=== PATIENT | female | born 1970 | race Caucasian/White ===

== ENCOUNTER 2018-07-13 10:30 | Day surgery (SDC) | payer OTHER ==
[2018-07-12 12:35] VITALS: BMI 26.3
[2018-07-13] MEDS ORDERED: Sodium Bicarbonate 2.5 MEQ/5 ML VIAL ONE (10:43)
[2018-07-13] MEDS ORDERED: Lidocaine 1% PF 5 ML VIAL ONE (10:43)
[2018-07-13 12:03] VITALS: BP 117/74; TEMP 98
--- NOTE | 2018-07-13 13:15 | ULT ---
ULTRASOUND GUIDED FINE NEEDLE ASPIRATION: INDICATIONS: Solid nodule within the right thyroid gland. COMPARISON: None. TECHNIQUE: A pre-procedure ultrasound was performed for guidance purposes only. There is a solid, echogenic nod ule seen within the right mid thyroid lobe, measuring 0.9 x 0.9 x 1.4 cm. There is a small cystic le gaston within the mid left thyroid lobe, measuring 3 x 4 mm. No lymphadenopathy is evident. Informed consent was obtained. The site overlying the right lobe was prepped and draped in the usual sterile fashion. Buffered 1% L idocaine was administered to the overlying subcutaneous tissues. Under ultrasound guidance, four sep arate FNA samples were obtained of the lesion within the right thyroid lobe. Pathology was onsite to obtain the FNA samples as acquired. The patient tolerated the FNA without difficulty. Postprocedur e images demonstrate no significant intraparenchymal or periparenchymal hematoma. The site was then cleansed and bandaged. The patient tolerated the procedure without difficulty. IMPRESSION: Successful ultrasound guided right thyroid nodule fine needle aspiration. POS: JONATHAN
== END 2018-07-13 11:50 | disposition home or self-care (01) ==
LOC: ULT 10:30
PROVIDERS: ATTEND Specialist
PROC: 0GBH3ZX Excision of Right Thyroid Gland Lobe, Percutaneous Approach, Diagnostic (ICD-10-PCS; principal; 2018-07-13)
DX: E04.2 Nontoxic multinodular goiter (principal)
CPT/HCPCS: 60100; 76942; 88173; J2001